=== PATIENT | male | born 1960 | race Caucasian/White ===

== ENCOUNTER 2022-01-24 13:33 | Emergency (ER) | payer OTHER | END 2022-01-24 15:25 | disposition home or self-care (01) | LOC: JP.ED 13:33 | DX: U07.1 COVID-19 (principal); E78.00 Pure hypercholesterolemia, unspecified; I10 Essential (primary) hypertension; Z88.0 Allergy status to penicillin; Z79.899 Other long term (current) drug therapy | CPT/HCPCS: 99283; U0002 ==